=== PATIENT | female | born 1990 | race Caucasian/White ===

== ENCOUNTER 2019-12-26 19:20 | Observation (INO) | payer OTHER ==
[~2019-12-26] VITALS: Ht 167.6 cm; Wt 95.3 kg
[2019-12-26 19:55] VITALS: BP 111/68
== END 2019-12-26 20:30 | disposition home or self-care (01) ==
LOC: MLD 19:20
PROVIDERS: ADMIT Obstetrics & Gynecology; ATTEND Obstetrics & Gynecology
DX: O62.9 Abnormality of forces of labor, unspecified (principal); O42.912 Preterm premature rupture of membranes, unspecified as to length of time between rupture and onset of labor, second trimester; O34.219 Maternal care for unspecified type scar from previous cesarean delivery; Z91.040 Latex allergy status; Z3A.26 26 weeks gestation of pregnancy
CPT/HCPCS: 59025; 81000; G0378

== ENCOUNTER 2020-03-30 12:36 | Emergency (ER) | payer OTHER ==
[~2020-03-30] VITALS: Ht 162.6 cm; Wt 88.9 kg
[2020-03-30 12:50] VITALS: BP 111/73
--- NOTE | 2020-03-30 12:56 | NUR ---
Patient in tent for covid precautions
--- NOTE | 2020-03-30 13:02 | NUR ---
30 y/o female from home c/o loss of taste and smell, cough, and body aches x 4 days. Denies chest pain/sob. RR even and unlabored. Awake and alert. States 5/10 pain at this time.
--- NOTE | 2020-03-30 16:36 | NUR ---
Patient left facility before covid swab completed, Left without discharge paperwork.
[2020-03-30 16:37] VITALS: BP 111/73
== END 2020-03-30 16:36 | disposition home or self-care (01) ==
LOC: MED 12:36
DX: R06.02 Shortness of breath (principal); Z20.828 Contact with and (suspected) exposure to other viral communicable diseases; Z95.0 Presence of cardiac pacemaker; Z91.040 Latex allergy status
CPT/HCPCS: 99283